=== PATIENT | male | born 1965 | race Caucasian/White ===

== ENCOUNTER 2023-05-27 21:25 | Emergency (ER) | payer OTHER ==
[2023-05-27] MEDS ORDERED: CYCLOBENZAPRINE10 MG PO (23:59)
[2023-05-28 00:14] VITALS: BP 141/76
== END 2023-05-28 00:16 | disposition home or self-care (01) ==
LOC: ED 21:25
DX: S20.211A Contusion of right front wall of thorax, initial encounter (principal); W10.9XXA Fall (on) (from) unspecified stairs and steps, initial encounter
CPT/HCPCS: 71101; 99283-25